=== PATIENT | male | born 1955 | race Caucasian/White ===

== ENCOUNTER 2018-07-15 06:32 | Emergency (ER) | payer MEDICAID, OTHER ==
[2018-07-15 06:46] VITALS: BP 144/85; PULSE 71; RESP 15; TEMP 98.2; O2SAT 97; BMI 33.4
--- NOTE | 2018-07-15 08:01 | ED PDOC ---
Arrival/HPI - General Chief Complaint: Lower Extremity Problem/Injury Time Seen by Provider: 07/15/18 07:30 Historian: Patient - History of Present Illness Narrative History of Present Illness (Text): 07/15/18 07:30 Lex Burnett is a 62 year old male, with a past medical history of CAD s/p stents x 2, hypertension, hyperlipidemia, diabetes, thyroidectomy, and herniated discs, brought by ambulance to the emergency department complaining of worsened right lower extremity pain radiating from lower back since waking up this morning. Patient informs history of similar right lower extremity pain but notes pain is worse than usual. Patient describes pain as severe "cutting" sensation. Patient takes anti-hypertensive medications. Also takes medications for hyperlipidemia, thyroid, and diabetes. Patient states visiting chiropractor. Patient denies urinary incontinence, dysuria, hematuria, bowel incontience, abdominal pain, nausea, vomiting, diarrhea, saddle anesthesia, parasthesias, fevers, chills, headaches, dizziness, vision changes, chest pain, shortness of breath, or any other complaints. Time/Duration: 1-3 hours Symptom Onset: Sudden Symptom Course: Unchanged Quality: Stabbing (Described as "cutting") Activities at Onset: Light Context: Home Past Medical History - Provider Review Nursing Documentation Reviewed: Yes - Infectious Disease Hx of Infectious Diseases: None - Tetanus Immunization Tetanus Immunization: Unknown - Cardiac Hx Cardiac Disorders: Yes Hx Hypertension: Yes - Pulmonary Hx Respiratory Disorders: No - Neurological Hx Neurological Disorder: Yes - HEENT Hx HEENT Disorder: No - Renal Hx Renal Disorder: No - Endocrine/Metabolic Hx Diabetes Mellitus Type 2: Yes Hx Hypothyroidism: Yes (thyroid removed) - Hematological/Oncological Hx Blood Transfusion Reaction: No - Integumentary Hx Dermatological Disorder: No - Musculoskeletal/Rheumatological Hx Musculoskeletal Disorders: No - Gastrointestinal Hx Gastrointestinal Disorders: No - Genitourinary/Gynecological Hx Genitourinary Disorders: No - Psychiatric Hx Psychophysiologic Disorder: Yes Hx Anxiety: Yes Hx Depression: Yes Hx Substance Use: No - Surgical History Hx Coronary Stent: Yes (x2) Hx Thyroidectomy: Yes - Anesthesia Hx Anesthesia Reactions: No Hx Malignant Hyperthermia: No - Suicidal Assessment Feels Threatened In Home Enviroment: No Family/Social History - Physician Review Nursing Documentation Reviewed: Yes Family/Social History: Unknown Family HX Smoking Status: Former Smoker Hx Alcohol Use: No (former) Hx Substance Use: No Allergies/Home Meds Allergies/Adverse Reactions: Allergies No Known Allergies Allergy (Verified 11/25/15 08:18) Home Medications: Home Meds Medication Instructions Recorded Confirmed Levothyroxine [Synthroid] 0.175 mg PO DAILY 11/20/15 05/28/17 Losartan [Cozaar] 50 mg PO DAILY 11/20/15 05/28/17 Metoprolol Tartrate [Lopressor] 12.5 mg PO BID 11/20/15 05/28/17 metFORMIN [glucOPHAGE] 1,000 mg PO BID 11/20/15 05/28/17 Aspirin [Ecotrin] 81 mg PO 05/28/17 Atorvastatin [Lipitor] 40 mg PO DIN 05/28/17 05/28/17 Cholecalciferol [Vitamin D] 5,000 unit PO SAT 05/28/17 05/28/17 Magnesium Oxide [Mag-Oxide 400 mg PO 05/28/17 Magnesium] Tamsulosin [Flomax] 0.4 mg PO DAILY 05/28/17 05/28/17 amLODIPine [Norvasc] 10 mg PO DAILY 05/28/17 05/28/17 Review of Systems - Physician Review All systems were reviewed & negative as marked: Yes - Review of Systems Constitutional: absent: Fevers, Other (chills) Eyes: absent: Vision Changes Respiratory: absent: SOB Cardiovascular: absent: Chest Pain Gastrointestinal: absent: Abdominal Pain, Diarrhea, Nausea, Vomiting, Other (bowel incontinence) Genitourinary Male: absent: Dysuria, Hematuria, Other (urinary incontinence ) Musculoskeletal: Back Pain (lower back pain), Other (right lower extremity pain radiating from lower back) Neurological: absent: Headache, Dizziness, Other (saddle anesthesia, parasthesia ) Physical Exam Vital Signs Reviewed: Yes Vital Signs Temp Pulse Resp BP Pulse Ox 07/15/18 06:40 98.2 F 71 15 144/85 97 Temperature: Afebrile Blood Pressure: Normal Pulse: Regular Respiratory Rate: Normal Appearance: Positive for: Well-Appearing, Non-Toxic, Comfortable Pain Distress: None Mental Status: Positive for: Alert and Oriented X 3 - Systems Exam Head: Present: Atraumatic, Normocephalic Pupils: Present: PERRL Extroacular Muscles: Present: EOMI Conjunctiva: Present: Normal Mouth: Present: Moist Mucous Membranes Neck: Present: Normal Range of Motion Respiratory/Chest: Present: Clear to Auscultation, Good Air Exchange. No: Respiratory Distress, Accessory Muscle Use, Wheezes, Rales, Rhonchi Cardiovascular: Present: Regular Rate and Rhythm, Normal S1, S2. No: Murmurs, Gallop, Muffled Abdomen: Present: Normal Bowel Sounds. No: Tenderness, Distention, Peritoneal Signs, Rebound, Guarding Back: Present: Normal Inspection. No: Midline Tenderness, Paraspinal Tenderness, Pain with Leg Raise Upper Extremity: Present: Normal Inspection, Normal ROM, NORMAL PULSES, Neurovascularly Intact, Capillary Refill < 2s. No: Cyanosis, Edema Lower Extremity: Present: Normal Inspection, NORMAL PULSES, Normal ROM, Neurovascularly Intact, Capillary Refill < 2 s. No: Edema Neurological: Present: GCS=15, CN II-XII Intact, Speech Normal, Motor Func Grossly Intact (normal gait when walking) Skin: Present: Warm, Dry, Normal Color. No: Rashes Psychiatric: Present: Alert, Oriented x 3, Normal Insight, Normal Concentration Medical Decision Making ED Course and Treatment: 07/15/18 07:30 Impression: Patient is a 62 year old male, with a history of CAD s/p stents x2 hypertension, hyperlipidemia, diabetes, thyroidectomy, and herniated discs who presents to the emergency department complaining of worsened right lower extremity pain radiating from lower back since this morning. Patient notes history of similar pain but informs pain is worsened upon waking up. Patient takes antihypertensive medications. Also takes medications for hyperlipidemia, diabetes, and thyroid. Denies bowel / urinary incontinence. Also denies saddle anesthesia or parasthesias. On exam; no pain with straight leg raise, no midline or paraspinal tenderness. Normal gait when walking. Otherwise unremarkable. Plan: -- Toradol -- Valium -- Reassess and disposition Prior Visits: Notes and results from previous visits were reviewed. Progress Notes: 07/15/18 09:56 Reassessed patient, who notes improved symptoms. Pt states he is ready to go home and will call for transportation home. - Scribe Statement The provider has reviewed the documentation as recorded by the Scribmalu Ho All medical record entries made by the Scribe were at my direction and personally dictated by me. I have reviewed the chart and agree that the record accurately reflects my personal performance of the history, physical exam, medical decision making, and the department course for this patient. I have also personally directed, reviewed, and agree with the discharge instructions and disposition. Disposition/Present on Arrival - Present on Arrival Any Indicators Present on Arrival: No History of DVT/PE: No History of Uncontrolled Diabetes: No Urinary Catheter: No History of Decub. Ulcer: No History Surgical Site Infection Following: None - Disposition Have Diagnosis and Disposition been Completed?: Yes Diagnosis: Lumbar radiculopathy, right Disposition: HOME/ ROUTINE Disposition Time: 09:59 Patient Plan: Discharge Patient Problems: Current Active Problems Problem Status Onset Lumbar radiculopathy, right Acute Condition: IMPROVED Discharge Instructions (ExitCare): Radiculopathy (DC) Additional Instructions: LEX BURNETT, thank you for letting us take care of you today. Your provider was Adelaida Nazario MD and you were treated for LEG PAIN. The emergency medical care you received today was directed at your acute symptoms. If you were prescribed any medication, please fill it and take as directed. It may take several days for your symptoms to resolve. Return to the Emergency Department if your symptoms worsen, do not improve, or if you have any other problems. Please contact your doctor for a follow up appointment in 1-2 days. Bring any paperwork you were given at discharge with you along with any medications you are taking to your follow up visit. Our treatment cannot replace ongoing medical care by a primary care provider outside of the emergency department. Thank you for allowing the [facility] team to be part of your care today. Prescriptions: Cyclobenzaprine [Cyclobenzaprine HCl] 10 mg PO TID PRN #20 tab PRN Reason: Muscle Spasm Naproxen [Naprosyn] 500 mg PO BID PRN #30 tablet PRN Reason: Pain, Moderate (4-7) Referrals: Navjot Feliz MD [Primary Care Provider] - Follow up with primary Forms: [facility] (Swedish)
== END 2018-07-15 10:21 | disposition home or self-care (01) ==
LOC: ED 06:32
DX: M54.16 Radiculopathy, lumbar region (principal); I10 Essential (primary) hypertension; E11.9 Type 2 diabetes mellitus without complications; E78.5 Hyperlipidemia, unspecified
CPT/HCPCS: 96372; 99283; J1885